=== PATIENT | female | born 1995 | race Caucasian/White ===

== ENCOUNTER 2019-08-25 21:56 | Inpatient (IN) | payer OTHER ==
[2019-08-25] MEDS ORDERED: HumaLOG 300 UNITS/3 ML VIAL SC PRN ×2 (23:44)
[2019-08-25] MEDS ORDERED: Dextrose 50% Abboject 50 ML SYRINGE SLOW IVP PRN (23:44)
[2019-08-25] MEDS ORDERED: Dextrose 5% in Water 1,000 ML IV PRN (23:44)
--- NOTE | 2019-08-26 00:07 | PDOC.HHP ---
Hospitalist HPI - History of Present Illness Right leg wound History of Present Illness: Patient presents with complaints of body aches that started this morning. She recently traveled by car from [place] and developed a wound on the right lower leg which she states was from a mosquito bite that she was scratching. Denies having any fever. Has swelling and warmth to the right lower leg. Denies any other complaints including chest pain or shortness of breath. No cough or hemoptysis. No fevers or chills. Initially seen in the ER at [place] on 08/10 due to wound. Apparently has not been healing given hx of type 1 DM. Presented again today to the ER in [place] and was started on IV antibiotics ( Vanc and Cefepime). She was also given Protonix and IV fluids. Also given Motrin 800 mg and Tylenol for a fever of 101.2, per patient. WCC 20. Lactic acid 1.9 Flu test was negative. Patient swabbed for COVID. Right Tib/fib xray unremarkable. Hospitalist ROS - Review of Systems Constitutional: reports: malaise, other (bodyaches) Eyes: denies: pain, vision change, conjunctivae inflammation, eyelid inflammation, redness, other ENT: denies: ear pain, ear discharge, nose pain, nose discharge, nose congestion , mouth pain, mouth swelling, throat pain, throat swelling, other Respiratory: denies: cough, dry, shortness of breath, hemoptysis, SOB with excertion, pleuritic pain, sputum, wheezing, other Cardiovascular: denies: chest pain, palpitations, orthopnea, paroxysmal noc. dyspnea, edema, light headedness, other Gastrointestinal: denies: nausea, vomiting, abdominal pain, diarrhea, constipation, melena, hematochezia, other Genitourinary: denies: dysuria, frequency, incontinence, hematuria, retention, other Musculoskeletal: reports: leg pain (right leg) Skin: reports: lesions (wound to right lower leg anterior menchaca) Neurological: denies: weakness, numbness, incoordination, change in speech, confusion, seizures, other - Medication Medications: ALLERGIES: Dicyclomine, Penicillin CURRENT MEDICATIONS: Basaglar KwikPen U-100 Insulin WedAugust 25, 2019 22:15 AMBER Balbuena, Melinda insulin pen : Strength - 100 unit/mL (3 mL) : [3 mL(s)] : SUBCUTANEOUS Patient Dose: units Subcutaneous 2 times a day.50 units AM; 37 units PM. NovoLOG Flexpen U-100 Insulin WedAugust 25, 2019 22:15 AMBER Balbuena Jessica insulin pen : Strength - 100 unit/mL (3 mL) : [3 mL(s)] : SUBCUTANEOUS Patient Dose: units Subcutaneous.sliding scale 5 carbs/unit. traMADol WedAugust 25, 2019 22:16 AMBER Balbuena Jessica tablet : Strength - 50 mg : ORAL Patient Dose: 50 mg Oral every 6 hours PRN. lisinopril WedAugust 25, 2019 22:17 AMBER Balbuena Jessica tablet : Strength - 2.5 mg : ORAL Patient Dose: 2.5 mg Oral once a day. gabapentin WedAugust 25, 2019 22:17 AMBER Balbuena Jessica tablet : Strength - 600 mg : ORAL Patient Dose: 600 mg Oral 3 times a day. omeprazole WedAugust 25, 2019 22:18 AMBER Balbuena Jessica tablet,disintegrat, delay rel : Strength - 20 mg : ORAL Patient Dose: 20 mg Oral once a day. Sprintec (28) WedAugust 25, 2019 22:18 AMBER Balbuena Jessica tablet : Strength - 0.25 mg-35 mcg : ORAL Patient Dose: 1 tab(s) Oral once a day. Vitamin D2 WedAugust 25, 2019 22:19 AMBER Balbuena Jessica capsule : Strength - 1,000 unit : ORAL Patient Dose: 1000 units Oral once a week. Hospitalist History - Past Medical History Source: patient Cardiac: reports: HTN TURKISH RUBBER: reports: Migraine Renal/: reports: Chronic renal insuff Endocrine: reports: Diabetes (type I), Hypothyroidism - Past Surgical History Past Surgical History: reports: Cholecystectomy, Tonsillectomy Other Surgical History: Dental surgery - Family History Family History: reports: no pertinent history - Social History Smoking Status: Never smoker Alcohol: reports: None Drugs: reports: none Living Situation: With Family Activity level: independent ambulation - Exam General Appearance: NAD Eye: PERRL ENT: normocephalic atraumatic, no oropharyngeal lesions, moist mucosa Neck: supple, symmetric, no lymphadenopathy Heart: RRR, no murmur, no gallops, no rubs, normal peripheral pulses Respiratory: CTAB, no wheezes, no rales, no ronchi, normal chest expansion, no tachypnea Gastrointestinal: soft, non-tender, non-distended, normal bowel sounds, no guarding, no rigidity Extremities: no edema Extremities - other findings: Rt calf warmth/swelling, small wounds to anterior leg, no d/c or bleeding Neurological: cranial nerve grossly intact, normal sensation to touch, no weakness, no focal deficits Musculoskeletal: normal tone, normal strength, no muscle wasting Psychiatric: normal affect, normal behavior, A&O x 3 Hospitalist Results - Radiology Interpretation Chest x-ray Status: pending Hospitalist H&P A/P - Problem (1) Leg wound, right Code(s): S81.801A - UNSPECIFIED OPEN WOUND, RIGHT LOWER LEG, INITIAL ENCOUNTER Status: Acute (2) Cellulitis Code(s): L03.90 - CELLULITIS, UNSPECIFIED Status: Acute (3) Type 1 diabetes mellitus Status: Chronic (4) Hypothyroidism Code(s): E03.9 - HYPOTHYROIDISM, UNSPECIFIED Status: Chronic (5) Hypertension Code(s): I10 - ESSENTIAL (PRIMARY) HYPERTENSION Status: Chronic - Plan Plan: Has been tachycardic at [facility] ED. Obtain baseline EKG. Cardiac monitoring. Continue IV fluids. Continue IV antibiotics. Wound care consulted. Monitor blood glucose. ISS initiated. Reconcile home medications once verified. Monitor BP. COVID testing pending (done at [place] ED). Continue Isolation. Venous doppler ordered, given recent long car ride, and calf swelling. GI Prophylaxis continue home dose of Omeprazole. CODE STATUS: FULL Surrogate decision maker: Her Poli Tiwari. Case discussed with Dr. Chang who agrees with plan as above.
[2019-08-26 01:45] VITALS: BMI 35.9
[2019-08-26] MEDS: Vancomycin HCl 1.75 GM in Sodium Chloride 0.9% 500 ML IVPB SCH ×2 (02:09→14:42)
[2019-08-26 04:48] LABS: #Basophils 0.1 thou/uL (0.0-0.2); #Eosinphils 0.1 thou/uL (0.0-0.7); #Lymphocytes 2.7 thou/uL (1.20-3.40); #Monocytes 0.9 thou/uL (0.11-0.59); #Neutrophils 10.8 thou/uL (1.40-6.50); %Basophils 0.5 % (0.0-1.0); %Eosinophils 0.5 % (0.0-10.0); %Lymphocytes 18.8 % (21.0-51.0); %Monocytes 6.1 % (0.0-10.0); %Neutrophils 74.2 % (42.0-75.0); Hemoglobin 11.5 g/dL (12.0-16.0); Mean Corpuscular HGB CONC 32.3 g/dL (32.0-36.0); Mean Corpuscular Hemoglobin 29.5 pg (27.0-31.0); Mean Corpuscular Volume 91.6 fL (78.0-98.0); Mean Platelet Volume 8.3 fL (7.4-10.4); Platelet Count 246 thou/uL (130-400); RBC Distribution Width 12.3 % (11.5-14.5); Red Blood Cell (RBC) Count 3.89 mill/uL (4.20-5.40); White Blood Cell (WBC) Count 14.6 thou/uL (4.8-10.8)
[2019-08-26] MEDS: Levothyroxine Sodium 88 MCG TAB PO SCH (05:00)
[2019-08-26] MEDS: Acetaminophen 325 MG TAB PO PRN ×4 (05:01→20:54)
[2019-08-26 05:08] LABS: Anion Gap 11 mmol/L (10-20); BUN (Urea Nitrogen) 8 mg/dL (7.0-18.7); Calc. Creatinine Clearance 211 mL/min (70-130); Calcium 7.8 mg/dL (7.8-10.44); Carbon Dioxide 19 mmol/L (22-29); Chloride 110 mmol/L (98-107); Estimated GFR-MDRD Greater than 90; Glucose 176 mg/dL (70-105); Magnesium 1.5 mg/dL (1.6-2.6); Potassium 3.8 mmol/L (3.5-5.1); Sodium 136 mmol/L (136-145)
[2019-08-26 05:33] LABS: Lactic Acid 1.8 mmol/L (0.5-2.2)
--- NOTE | 2019-08-26 07:26 | RAD ---
SINGLE VIEW CHEST: HISTORY: Sepsis. COMPARISON: None. FINDINGS: Single view of the chest show normal sized cardiomediastinal silhouette. There is no evidence of cons olidation, mass, or pleural effusion. The bones are unremarkable. IMPRESSION: No evidence of acute cardiopulmonary disease. POS: EAA
--- NOTE | 2019-08-26 07:51 | ULT ---
BILATERAL LOWER EXTREMITY VENOUS DOPPLER ULTRASOUND: HISTORY: Bilateral lower extremity pain and edema after a long trip. TECHNIQUE: Cantu-scale ultrasound with color-flow and spectral Doppler imaging of the deep venous system of the l ower extremities is performed bilaterally. FINDINGS: There is good flow, compression and augmentation noted in the common femoral, femoral, deep femoral, popliteal, posterior tibial and greater saphenous veins. IMPRESSION: No evidence of deep venous thrombosis in either lower extremity. POS: TORO
[2019-08-26] MEDS: Cefepime 2 GM in Sodium Chloride 0.9% 100 ML IVPB SCH ×2 (08:15→20:40)
[2019-08-26] MEDS: Atorvastatin Calcium 10 MG TAB PO SCH (08:16)
[2019-08-26] MEDS: Insulin Glargine 50 UNITS in Pre-Filled Syringe 1 EACH SC SCH (08:17)
[2019-08-26] MEDS: HumaLOG 300 UNITS/3 ML VIAL SC SCH ×2 (08:17→12:04)
[2019-08-26] MEDS ORDERED: Non-Formulary Item 1 EACH (Insulin Glargine,Hum.Rec.Anlog [Basaglar Kwikpen U-100] 50 UNI SC SCH (09:00)
[2019-08-26] MEDS ORDERED: Famotidine 20 MG TAB PO SCH (09:00)
[2019-08-26] MEDS ORDERED: Sodium Chloride 0.9% 1,000 ML IV SCH (12:45)
--- NOTE | 2019-08-26 15:12 | PDOC.HOSPP ---
- Subjective Encounter Date: 08/26/19 Encounter Time: 10:30 Subjective: pt up in bed complains of some pain to her right menchaca area. - Objective Vital Signs & Weight: Vital Signs (12 hours) Temp Pulse Resp BP BP BP BP 08/26/19 12:48 142/87 H 147/90 H 08/26/19 12:37 98.3 F 118 H 20 141/91 H 08/26/19 08:30 98.2 F 101 H 16 08/26/19 03:42 98.2 F 115 H 16 140/85 BP Pulse Ox 08/26/19 12:48 135/78 08/26/19 12:37 98 08/26/19 08:30 98 08/26/19 03:42 98 Weight Admit Weight 216 lb Weight 216 lb 1.6 oz I&O: 08/25/19 08/26/19 08/27/19 06:59 06:59 06:59 Intake Total 690 Balance 690 Result Diagrams: 08/26/19 04:27 08/26/19 04:27 Additional Labs: Accuchecks 08/26/19 08/26/19 12:16 02:16 POC Glucose 122 H 180 H Hospitalist ROS - Review of Systems Cardiovascular: denies: chest pain, palpitations, orthopnea, paroxysmal noc. dyspnea, edema, light headedness, other Gastrointestinal: denies: nausea, vomiting, abdominal pain, diarrhea, constipation, melena, hematochezia, other Genitourinary: denies: dysuria, frequency, incontinence, hematuria, retention, other - Medication Medications: Active Medications Generic Name Dose Route Start Last Admin Trade Name Duglas PRN Reason Stop Dose Admin Acetaminophen 650 mg 08/26/19 03:27 08/26/19 14:27 Tylenol PO 650 mg Q4H PRN Administration Headache/Fever or Pain Atorvastatin Calcium 10 mg 08/26/19 09:00 08/26/19 08:16 Lipitor PO 10 mg DAILY GRZEGORZ Administration Cefepime HCl 2 gm/ Sodium 100 mls @ 200 mls/hr 08/26/19 08:00 08/26/19 08:15 Chloride IVPB 100 mls 0800,2000 GRZEGORZ Administration Vancomycin HCl 1.75 gm/ Sodium 500 mls @ 250 mls/hr 08/26/19 03:00 08/26/19 14:42 Chloride IVPB 500 mls 0300,1500 GRZEGORZ Administration Insulin Glargine 50 units/ 0.5 mls @ 0 mls/hr 08/26/19 09:00 08/26/19 08:17 Miscellaneous Medication SC 0.5 mls QAM GRZEGORZ Administration Levothyroxine Sodium 88 mcg 08/26/19 06:00 08/26/19 05:00 Synthroid PO 88 mcg 0600 GRZEGORZ Administration Pantoprazole Sodium 40 mg 08/26/19 09:00 08/26/19 08:16 Protonix PO 40 mg DAILY GRZEGORZ Administration - Exam Neck: negative: supple, symmetric, no JVD, no thyromegaly, no lymphadenopathy, no carotid bruit, JVD Heart: negative: RRR, no murmur, no gallops, no rubs, normal peripheral pulses, irregular, diminshed peripheral pulses, murmur present, II/IV, III/IV Respiratory: negative: CTAB, no wheezes, no rales, no ronchi, normal chest expansion, no tachypnea, normal percussion, rales, rhonchi, tachypneic, wheezes Gastrointestinal: negative: soft, non-tender, non-distended, normal bowel sounds , no palpable masses, no hepatomegaly, no splenomegaly, no bruit, no guarding, no rigidity, tender to palpation, distended, diminished bowl sounds, voluntary guarding Extremities - other findings: small open scab noted, with drainage Hosp A/P (1) Tachycardia Code(s): R00.0 - TACHYCARDIA, UNSPECIFIED Status: Acute (2) Cellulitis Code(s): L03.90 - CELLULITIS, UNSPECIFIED Status: Acute (3) Hypothyroidism Code(s): E03.9 - HYPOTHYROIDISM, UNSPECIFIED Status: Chronic (4) Type 1 diabetes mellitus Status: Chronic - Plan will continue abx for now. Doppler negative. will check orthostatic on pt. will give her one liter ns. if her tachycardia continues will get cta to rule out pt. Awaiting covid testing.
[2019-08-26] MEDS ORDERED: Amitriptyline HCl 25 MG TAB PO SCH (21:00)
[2019-08-26] MEDS ORDERED: INSULIN GLARGINE HUM REC ANLOG SC SCH (21:00)
[2019-08-26] MEDS ORDERED: [UNRECOGNIZED DRUG - OTHER] SC SCH (21:00)
[2019-08-26] MEDS ORDERED: Insulin Glargine 37 UNITS in Pre-Filled Syringe 1 EACH SC SCH (21:00)
[2019-08-26] MEDS ORDERED: Ketorolac Tromethamine 10 MG TAB PO SCH (22:30)
[2019-08-27] MEDS: Sodium Chloride 0.45% 1,000 ML IV SCH ×2 (01:22→14:31)
[2019-08-27] MEDS: Vancomycin 1.5 GRAM/300 ML BAG 1.5 GM in Premix Bag 1 BAG IVPB SCH ×2 (03:46→08:26)
[2019-08-27] MEDS: Levothyroxine Sodium 88 MCG TAB PO SCH (03:48)
[2019-08-27 04:53] LABS: #Basophils 0.1 thou/uL (0.0-0.2); #Eosinphils 0.1 thou/uL (0.0-0.7); #Lymphocytes 2.3 thou/uL (1.20-3.40); #Neutrophils 9.3 thou/uL (1.40-6.50); %Basophils 0.8 % (0.0-1.0); %Eosinophils 0.5 % (0.0-10.0); %Monocytes 7.4 % (0.0-10.0); %Neutrophils 73.2 % (42.0-75.0); Hemoglobin 11.9 g/dL (12.0-16.0); Mean Corpuscular HGB CONC 31.6 g/dL (32.0-36.0); Mean Corpuscular Hemoglobin 29.7 pg (27.0-31.0); Mean Corpuscular Volume 93.8 fL (78.0-98.0); Mean Platelet Volume 8.2 fL (7.4-10.4); Platelet Count 228 thou/uL (130-400); RBC Distribution Width 12.1 % (11.5-14.5); Red Blood Cell (RBC) Count 4.03 mill/uL (4.20-5.40); White Blood Cell (WBC) Count 12.7 thou/uL (4.8-10.8)
[2019-08-27 05:08] LABS: Lactic Acid 0.8 mmol/L (0.5-2.2)
[2019-08-27 05:19] LABS: ALT (SGPT) 20 U/L (8-55); Magnesium 1.7 mg/dL (1.6-2.6)
[2019-08-27 05:22] LABS: AST (SGOT) 28 U/L (5-34); Albumin 2.8 g/dL (3.5-5.0); Anion Gap 13 mmol/L (10-20); BUN (Urea Nitrogen) 5 mg/dL (7.0-18.7); Bilirubin, Total Less than 0.2 mg/dL (0.2-1.2); Calc. Creatinine Clearance 218 mL/min (70-130); Calcium 7.7 mg/dL (7.8-10.44); Carbon Dioxide 16 mmol/L (22-29); Chloride 108 mmol/L (98-107); Estimated GFR-MDRD Greater than 90; Globulin 3.5 g/dL (2.4-3.5); Glucose 188 mg/dL (70-105); Phosphorus 2.6 mg/dL (2.3-4.7); Potassium 4.3 mmol/L (3.5-5.1); Protein, Total 6.3 g/dL (6.0-8.3); Sodium 133 mmol/L (136-145)
[2019-08-27 05:36] LABS: Alkaline Phosphatase 69 U/L (40-110)
[2019-08-27 05:44] LABS: Free T4 (Free Thyroxine) 0.85 ng/dL (0.70-1.48)
--- NOTE | 2019-08-27 07:52 | CT ---
CTA CHEST WITH CONTRAST: Date: 08/26/2019 COMPARISON: None. HISTORY: Persistent tachycardia after a recent long car ride. TECHNIQUE: Multiple contiguous axial images were obtained in a CTA of the chest with contrast per lmonary embolism protocol. 3D oblique MIP reformats and direct coronal reformats were performed. FINDINGS: There is poor timing of contrast bolus limiting evaluation of the pulmonary arteries. The central pul monary arteries show no obvious filling defects to suggest pulmonary emboli. The heart is normal in s ize. There is hypertrophy of the left ventricular wall. No hilar or mediastinal lymphadenopathy are s een. No focal infiltrates or masses are seen in the lungs. No pneumothorax or pleural effusion seen. The gallbladder has been removed. The liver is abnormal in appearance. There is decreased density breanne ng the peripheral aspect of the liver. This is seen in both the right and the left lobes, but spares the caudate lobe. The other visualized subdiaphragmatic structures are unremarkable. IMPRESSION: 1. No evidence of pulmonary thromboembolism on this limited exam. 2. Abnormal appearance of the liver. Correlate with history of prior liver injury. This does not loo k particularly mass-like to suggest that this represents metastatic disease and more favors a prior v ascular injury to the liver. Correlate with history. A MRI of the abdomen per liver mass protocol may be necessary for better characterization. POS: DON
[2019-08-27] MEDS: Insulin Glargine 50 UNITS in Pre-Filled Syringe 1 EACH SC SCH (08:25)
[2019-08-27] MEDS: Atorvastatin Calcium 10 MG TAB PO SCH (08:26)
[2019-08-27] MEDS: Cefepime 2 GM in Sodium Chloride 0.9% 100 ML IVPB SCH (08:27)
[2019-08-27] MEDS: Acetaminophen 325 MG TAB PO PRN ×2 (08:31→11:48)
--- NOTE | 2019-08-27 12:20 | EKG ---
Test Reason : Blood Pressure : / mmHG Vent. Rate : 110 BPM Atrial Rate : 110 BPM P-R Int : 128 ms QRS Dur : 086 ms QT Int : 336 ms P-R-T Axes : 042 047 021 degrees QTc Int : 454 ms Sinus tachycardia Nonspecific T wave abnormality Abnormal ECG No previous ECGs available Confirmed by ARMAAN VILLEDA, DR. Huang ([id number]) on 08/27/2019 12:20:10 PM Referred By: RAINA Confirmed By:DR. Reina CROOK MD
[2019-08-27 14:49] VITALS: TEMP 97.4
[2019-08-27 17:05] VITALS: BP 134/90
[2019-08-27] MEDS ORDERED: Vancomycin 1.5 GRAM/300 ML BAG 1.5 GM in Premix Bag 1 BAG IVPB SCH (18:00)
[2019-08-28 04:54] LABS: Pregnancy Test - Urine (BHCG) Negative (Negative); Pregu Control Background? CLEAR/WHITE (CLR/WHITE); Pregu Control Bar Appear? YES (CONTROL BAR); Specific Gravity 1.015 (1.002-1.036)
--- NOTE | 2019-08-29 05:04 | PQF ---
[employer] Specialist Crystal Reports Winform Viewer COLLETTE BERRIOS YRISJOAO ESPARZA [id number] [id number] CLINICAL DOCUMENTATION CLARIFICATION FORM: POST DISCHARGE Addendum to original discharge summary date: ____ Late entry note date: __ DATE: 08/29/19 ATTN:Joao Krueger Please exercise your independent, professional judgment in responding to the clarification form. Clinical indicators are provided on the bottom of this form for your review Can you please further clarify if Sepsis is ruled in or ruled out? Sepsis [ ] Ruled in diagnosis [ x] Continue to treat [ ] Resolved [ ] Ruled out diagnosis [ ] Cannot rule out diagnosis [ ] Other diagnosis [ ] Unable to determine In addition, please specify: Present on Admission (POA): [x ] Yes [ ] No [ ] Unable to determine For continuity of documentation, please document condition throughout progress notes and discharge summary. Thank You. CLINICAL INDICATORS - SIGNS / SYMPTOMS / LABS ED Provider pg.4- Sepsis H and P pg.1- fever of 101.2. WBC 20, Lactic acid 1.9 H and P pg.4- he has been tachycardic at outside ED Laboratory- WBC 12.7, 14.6H Laboratory- Lactic acid 1.8, 0.8 VS- BP 141/96, pulse 121, temp 98.9, RR 18 RISK FACTORS Cellulitis- H and P pg.4 DM HP 08/25 Leg wound HP 08/25 CKD ED Notes 08/24 TREATMENTS Cefepime 2gm- IV MAR Vancomycin 1.75gm IV- MAR IV Fluids- MAR (This form is maintained as a part of the permanent medical record) 2014 [email or web address] All Rights Reserved French [email or web address]
== END 2019-08-27 19:00 | disposition left against medical advice (07) | DRG 872 ==
LOC: ERS 21:56 → 2SW 08-26 01:22
PROVIDERS: ADMIT Internal Medicine; ATTEND Internal Medicine
DX: A41.9 Sepsis, unspecified organism (principal); L03.115 Cellulitis of right lower limb; E03.9 Hypothyroidism, unspecified; I12.9 Hypertensive chronic kidney disease with stage 1 through stage 4 chronic kidney disease, or unspecified chronic kidney disease; N18.9 Chronic kidney disease, unspecified; E10.22 Type 1 diabetes mellitus with diabetic chronic kidney disease; Z88.0 Allergy status to penicillin; Z88.8 Allergy status to other drugs, medicaments and biological substances; Z79.4 Long term (current) use of insulin; Z79.899 Other long term (current) drug therapy; Z90.49 Acquired absence of other specified parts of digestive tract
CPT/HCPCS: 36415; 36416; 71045; 71275; 80048; 80053; 80202; 81025; 83605; 83735; 84100; 84439; 84443; 84481; 85025; 93005; 93010; 93970; 96360; J0692; J1815; J3370; J3475; J3490; J7030